=== PATIENT | female | born 1990 | race Caucasian/White ===

== ENCOUNTER 2025-09-10 02:12 | Emergency (ER) | payer SELFPAY ==
[2025-09-10 02:15] VITALS: BP 129/65; PULSE 64; RESP 18; TEMP 36.6; O2SAT 98
--- NOTE | 2025-09-10 02:15 | ED.GENADUL_ITS ---
Discharge Plan Discharge Details Chief Complaint: Headache Primary Care Provider: Kelly,Local ED Provider: Shai Leong Kamiah Meds and New Rx's Prescriptions: No Action gabapentin 100 mg capsule 100 mg PO DAILY PRN clonazepam [Klonopin] 0.5 mg tablet 0.5 mg PO DAILY PRN HPI General Mode of arrival: ambulatory . Date/Time Provider Initiated Documentation: 09/10/25 02:13 . Limitations to Documentation: no limitations . Information obtained by: patient and RN notes reviewed . HPI Narrative: Patient presents to ED with complaint of right sided headache, dizziness, right sided body numbness and tingling. Patient is on vacation and typically is treated at [facility] in [place]. She reports a history of migraines, small fiber neuropathy and Lyme disease. States that this headache does not feel like her typical migraines. It came on rather suddenly 2 hours ago. Starts behind her right eye goes into the posterior portion of her head and into her neck. No report of visual change. No recent trauma. Recovered from a flulike illness a month ago. States she gets intermittent episodes of numbness and tingling throughout her entire body on and off because of the small fiber neuropathy. Is now having right sided numbness and tingling involving face, torso, extremities. Denies feeling any weakness. Reports brain fog which is not necessarily new but she feels like it is worse. Feels like she is having difficulty with finding her words needed to communicate. Related Data Home Medications Medication Instructions Recorded Confirmed clonazepam 0.5 mg tablet (Klonopin) 0.5 mg PO DAILY W[place] N 09/10/25 09/10/25 gabapentin 100 mg capsule 100 mg PO DAILY PRN 09/10/25 09/10/25 Allergies Allergy/AdvReac Type Severity Reaction Status Date / Time minocycline AdvReac Mild Skin Rash Verified 09/10/25 02:19 trazodone AdvReac Mild Agitation Verified 09/10/25 02:19 Exam Narrative Exam Narrative: Const: WDWN female in NAD. VS per triage. HEENT: NC/AT. Normal facial exam. Eyes: PERRL and EOMI. Neck: Supple. Trachea midline. Lungs: Normal respiratory effort. Neuro: A+O x 3. Normal speech, mentation. Cranial nerves II - XII grossly intact. Generally weak but seems potentially voluntary, no focal weakness. There is no pronator drift. Decreased sensation on right side compared to left side but no loss of sensation. Ext: No C/C/E. Medical Decision Making Patient presenting to the ED with complaint of new right sided headache different from typical migraines and headaches with associated dizziness and right-sided numbness and tingling. Reports history of migraines, small fiber neuropathy, Lyme disease and is followed by neurology at [facility] in [place]. Her neurologic exam overall seems reassuring. She has to be coached in regards to strength but has no focal weakness. Reports a decrease in sensation but not lack of sensation on the right compared to the left. I do not have access to any of her old records. This may very well be an atypical migraine but given the neurologic complaints we will need to further investigate. As such a teleneurology consult is placed. Laboratory studies and CTA of the brain and neck ordered. For now we will treat headache with IV acetaminophen and toe no evidence of bleed on CT at which point she will also try ketorolac. Patient reports that she does not like taking migraine medications, stating they make her feel out of it so for now we will hold off on meds like prochlorperazine, metoclopramide. Patient's CBC and CMP are normal. CTA of the brain/neck is also normal per preliminary radiology read. Patient was seen by neurology. I discussed presentation and my findings with neurology. After discussion we have decided that a brain MRI w/o contrast should be obtained this morning. If negative can be discharged. Lab Data Lab results reviewed: Yes I reviewed the patient's lab results. Lab results narrative: see [facility] Medical History (Updated 09/10/25 @ 03:10 by Shai Leong MD) Migraine Surgical History (Updated 09/10/25 @ 03:10 by Shai Leong MD) S/P hysterectomy Social History Smoking/Tobacco Use Status: Current every day Smoking risk assessment performed?: Yes Alcohol Intake: never Substance use type: does not use
[2025-09-10] MEDS: ACETAMINOPHEN 1,000 MG/100 ML BAG 400 MG IVPB (02:47)
[2025-09-10 02:55] LABS: Abs Immature Grans 0.02 10^3/uL (0.0-0.06); HCT 40.0 % (36.0-46.0); HGB 13.6 g/dL (11.2-15.7); Immature Grans % 0.3 %; MCH 31.3 pg (27.0-33.0); MCHC 34.0 % (32.0-36.0); MCV 92 fL (80-95); MPV 9.3 fL (8.0-11.0); Platelet Count 232 10^3/uL (130-400); RBC 4.35 10^6/uL (3.93-5.22); RDW 11.5 % (11.7-14.6); RDW-SD 39.2 fL; WBC 6.19 10^3/uL (4.4-10.8)
[2025-09-10] MEDS: Normal Saline - Diluent 50 ML VIAL IJ (03:07)
[2025-09-10] MEDS: Omnipaque 350 MG/ML 100 ML BTL IJ (03:07)
[2025-09-10] MEDS: Normal Saline Flush 10 ML SYR IVP (03:08)
--- NOTE | 2025-09-10 03:08 | DI.CT_ITS ---
Exam(s) CT BRAIN NECK CTA EXAM: CT BRAIN NECK CTA CLINICAL HISTORY: right headache, numbness right side. TECHNIQUE: Imaging Protocol: Axial CT angiography was performed with multi- slice acquisition and multi-planar and/or 3D reconstructions. CONTRAST MATERIAL: Intravenous: Omnipaque 350 contrast volume:70 mL COMPARISON: No exams were available for comparison FINDINGS: CT Head W/O and W: Ventricles and Extra axial spaces: Normal in size and morphology for the patient's age. Hemorrhage: None. Cerebral parenchyma: Normal. Midline shift: None. Brainstem/Cerebellum: Normal. Calvarium: Normal. Visualized Paranasal sinuses/Mastoids: Clear. Soft Tissues: Unremarkable. Enhancement: Unremarkable. CTA Neck W: Common Carotid: Right: No dissection, occlusion or significant stenosis. Left: No dissection, occlusion or significant stenosis. External Carotid: Right: No occlusion or significant stenosis. Left: No occlusion or significant stenosis. Internal Carotid: Right: No dissection, occlusion or significant stenosis. Left: No dissection, occlusion or significant stenosis. Vertebral Artery: Right: No dissection, occlusion or significant stenosis. Left: No dissection, occlusion or significant stenosis. Lung Apices: Normal. Bones: Within normal limits for the patient's age. Soft Tissues: Normal. Thyroid gland: Unremarkable. CTA Brain W: Internal Carotid Arteries: Normal. Anterior Cerebral Arteries: Right: No aneurysm, occlusion or significant stenosis. Left: No aneurysm, occlusion or significant stenosis. Middle Cerebral Arteries: Right: No aneurysm, occlusion or significant stenosis. Left: No aneurysm, occlusion or significant stenosis. Posterior Cerebral Arteries: Right: No aneurysm, occlusion or significant stenosis. Left: No aneurysm, occlusion or significant stenosis. Vertebral Arteries: Right: No aneurysm, occlusion or significant stenosis. Left: No aneurysm, occlusion or significant stenosis. Basilar Artery: No aneurysm, occlusion or significant stenosis. IMPRESSION: 1. No large vessel occlusion or significant stenosis on the CT angiography of the head. 2. No acute intracranial process. 3. No occlusion or significant stenosis on the CT angiography of the neck. 4. The preliminary [facility] report was reviewed. RADIATION DOSE DELIVERED: 2,020.16mGy.cm Total DLP DATA REPOSITORY: All CT scans at this facility are submitted to the National Radiology Data Registry (NRDR) Dose Index Registry (DIR) with the [employer] (ACR). RADIATION OPTIMIZATION: All CT scans at this facility use at least one of these dose optimization techniques: automated exposure control; mA and/or kV adjustment per patient size (includes targeted exams where dose is matched to clinical indication); or iterative reconstruction.
--- NOTE | 2025-09-10 03:16 | DI.[facility]_ITS ---
PROCEDURE INFORMATION: Exam: CTA Head Without And With Contrast, Arteriography Exam date and time: 09/10/2025 2:40 AM Age: 35 years old Clinical indication: Pain; Right headache, numbness right side TECHNIQUE: Imaging protocol: Computed tomographic angiography of the head without and with contrast. Exam focused on the arteries. 3D rendering (Not supervised by radiologist): MIP and/or 3D reconstructed images were created by the technologist. Radiation optimization: All CT scans at this facility use at least one of these dose optimization techniques: automated exposure control; mA and/or kV adjustment per patient size (includes targeted exams where dose is matched to clinical indication); or iterative reconstruction. Contrast material: [id number]; Contrast volume: 70 ml; Contrast route: INTRAVENOUS (IV); COMPARISON: No relevant prior studies available. FINDINGS: ANTERIOR CIRCULATION: Right internal carotid artery: Intracranial segment is patent with no significant stenosis or occlusion. No aneurysm. Right middle cerebral artery: No occlusion or significant stenosis. No aneurysm. Right anterior cerebral artery: No occlusion or significant stenosis. No aneurysm. Left internal carotid artery: Intracranial segment is patent with no significant stenosis. No aneurysm. Left middle cerebral artery: No occlusion or significant stenosis. No aneurysm. Left anterior cerebral artery: No occlusion or significant stenosis. No aneurysm. POSTERIOR CIRCULATION: Right vertebral artery: No occlusion or significant stenosis. No aneurysm. Left vertebral artery: No occlusion or significant stenosis. No aneurysm. Basilar artery: No occlusion or significant stenosis. No aneurysm. Right posterior cerebral artery: No occlusion or significant stenosis. No aneurysm. Left posterior cerebral artery: No occlusion or significant stenosis. No aneurysm. HEAD: Brain: Normal. No hemorrhage. Unremarkable white matter. No mass effect. Cerebral ventricles: Normal. No ventriculomegaly. Bones: Unremarkable. No acute fracture. Paranasal sinuses: Visualized sinuses are normal. No fluid levels. Mastoid air cells: Visualized mastoids are normal. No mastoid effusion. Soft tissues: Unremarkable. IMPRESSION: 1. No large vessel occlusion. 2. Unremarkable CT head. PROCEDURE INFORMATION: Exam: CTA Neck Without And With Contrast Exam date and time: 09/10/2025 2:40 AM Age: 35 years old Clinical indication: Pain; Right headache, numbness right side TECHNIQUE: Imaging protocol: Computed tomographic angiography of the neck without and with contrast. Exam focused on the cervical segments of the vasculature. 3D rendering (Not supervised by radiologist): MIP and/or 3D reconstructed images were created by the technologist. Radiation optimization: All CT scans at this facility use at least one of these dose optimization techniques: automated exposure control; mA and/or kV adjustment per patient size (includes targeted exams where dose is matched to clinical indication); or iterative reconstruction. Contrast material: [id number]; Contrast volume: 70 ml; Contrast route: INTRAVENOUS (IV); COMPARISON: No relevant prior studies available. FINDINGS: Right common carotid artery: No stenosis. No dissection or occlusion. Right internal carotid artery: No stenosis of the extracranial segment. No dissection or occlusion. Right external carotid artery: No occlusion or stenosis of the origin. Left common carotid artery: No stenosis. No dissection or occlusion. Left internal carotid artery: No stenosis of the extracranial segment. No dissection or occlusion. Left external carotid artery: No occlusion or stenosis of the origin. Right vertebral artery: No stenosis. No dissection or occlusion. Left vertebral artery: No stenosis. No dissection or occlusion. Soft tissues: Normal. No significant soft tissue swelling. Bones/joints: No acute fracture. IMPRESSION: No stenosis or occlusion. REFERENCES: NASCET CRITERIA. The degree of stenosis in the cervical segment of the internal carotid artery is based on NASCET criteria. Normal is no stenosis. Mild is less than 50% stenosis. Moderate is 50-69% stenosis. Severe is 70% to 99% stenosis. Total occlusion is no detectable patent lumen. Dictated and Authenticated by: Spencer Cuadra MD. Orderin Salo Gibbons MD
[2025-09-10 03:19] LABS: ALT 17 U/L (14-59); AST 13 U/L (15-37); Albumin 4.0 g/dL (3.4-5.0); Alkaline Phosphatase 50 U/L (46-116); Anion Gap 6.4 mmol/L (3-11); BUN 15 mg/dL (7-18); Bilirubin, Total 0.3 mg/dL (0.2-1.0); CO2 30.6 mmol/L (21.0-32.0); Calcium 8.9 mg/dL (8.5-10.1); Chloride 103 mmol/L (98-107); Glucose 99 mg/dL (74-106); Magnesium 2.0 mg/dL (1.8-2.4); Potassium 3.8 mmol/L (3.5-5.1); Sodium 140 mmol/L (136-145); Total Protein 7.2 g/dL (6.4-8.2)
--- NOTE | 2025-09-10 04:15 | DI.MRI_ITS ---
Exam(s) MR BRAIN WO EXAM: MR BRAIN WO CLINICAL HISTORY: right headache, right numbness, dizzy TECHNIQUE: Multiplanar multisequence MRI of the brain was performed. COMPARISON: CT CT BRAIN NECK CTA from 09/10/2025 FINDINGS: VENTRICLES AND EXTRA AXIAL SPACES: Normal in size and morphology for the patient's age. MIDLINE SHIFT: None. CEREBRAL PARENCHYMA: No focus of restricted diffusion to suggest acute infarct. No space-occupying lesion identified. HEMORRHAGE: None. BRAINSTEM/CEREBELLUM: Normal. CALVARIUM: Normal. VISUALIZED PARANASAL SINUSES/MASTOIDS:Clear. [place]: Normal flow void. PITUITARY GLAND: Unremarkable. OTHER FINDINGS: None. IMPRESSION: Unremarkable MRI of the brain. DATA REPOSITORY:
[2025-09-10 07:17] VITALS: BP 109/82; PULSE 60; RESP 16; O2SAT 95
[2025-09-10 09:10] VITALS: BP 92/66; PULSE 60; RESP 17; O2SAT 99
== END 2025-09-10 09:11 | disposition home or self-care (01) ==
PROVIDERS: Emergency Medicine; Emergency Provider General Practice
DX: R51.9 Headache, unspecified (principal)
CPT/HCPCS: 99284; 99285; 36415; 70496; 70498; 80053; 96365; 70551; 83735; 85025; J0131; J3490